=== PATIENT | male | born 1960 | race Caucasian/White ===

== ENCOUNTER 2020-05-29 19:09 | Emergency (ER) | payer OTHER ==
[~2020-05-29] VITALS: Ht 172.7 cm; Wt 95.5 kg
[2020-05-29 19:16] VITALS: Ht 172.7 cm; Wt 95.5 kg
[2020-05-29] MEDS ORDERED: GLUCOPHAGE1000 MG PO (19:19)
[2020-05-29] MEDS ORDERED: PIOGLITAZONE15 MG PO (19:20)
[2020-05-29] MEDS ORDERED: PAXIL CR37.5 MG PO (19:20)
[2020-05-29 19:55] LABS: BASOPHILS 0.2 % (0-2); EOSINOPHILS 0.3 % (0-7); HEMATOCRIT 38.6 % (42.0-54.0); HEMOGLOBIN 13.6 g/dL (13.5-17.5); IMMATURE GRANULOCYTES 0.2 % (0-5); LYMPHOCYTES 12.3 % (15-50); MCHC 35.2 g/dL (31.0-37.0); MCV 93.7 fL (80.0-100.0); MEAN PLATELET VOLUME 8.8 fL (7.4-10.4); MONOCYTES 8.1 % (2-11); NEUTROPHILS 78.9 % (40-80); PLATELET COUNT 285 10x3/uL (130-400); RBC 4.12 10x6/uL (4.20-6.10); RDW 12.1 % (11.5-14.5); WBC 8.7 10x3/uL (4.8-10.8)
[2020-05-29 20:07] LABS: CALCIUM 9.8 mg/dL (8.5-10.1); CARBON DIOXIDE 23.2 mmol/L (21.0-32.0); CREATININE - SERUM 1.1 mg/dL (0.6-1.3); POTASSIUM - SERUM 4.2 mmol/L (3.5-5.1)
[2020-05-29 20:21] LABS: ALBUMIN 4.4 g/dL (3.4-5.0); BILIRUBIN - TOTAL 0.54 mg/dL (0.2-1.3); PROTEIN - SERUM 7.7 g/dL (6.4-8.2)
[2020-05-29] MEDS ORDERED: ZOFRAN ODT4 MG/UDTAB PO (21:06)
[2020-05-29] MEDS ORDERED: FLOMAX0.4 MG PO (21:06)
[2020-05-29] MEDS ORDERED: DICLOFENAC SODI50 MG PO (21:06)
[2020-05-29] MEDS ORDERED: HYDROCODON-ACE1 EAC7 PO (21:06)
[2020-05-29] MEDS ORDERED: KEFLEX500 MG PO (21:09)
[2020-05-29 21:23] LABS: BACTERIA FEW HPF (NONE SEEN); BILIRUBIN NEGATIVE (NEGATIVE); EPITHELIAL CELLS 0-5 /hpf (0-5); KETONE LARGE mg/dL (NEGATIVE); NITRITE NEGATIVE (NEGATIVE); UROBILINOGEN NORMAL mg/dL (< 2); WHITE CELLS - URINE 0-5 HPF (0-1)
[2020-05-29 21:51] VITALS: BP 163/82
== END 2020-05-29 21:51 | disposition home or self-care (01) ==
LOC: D.ER 19:09
PROVIDERS: Emergency Medicine
DX: R10.30 Lower abdominal pain, unspecified (principal); N13.39 Other hydronephrosis; N20.2 Calculus of kidney with calculus of ureter; R94.4 Abnormal results of kidney function studies; E11.65 Type 2 diabetes mellitus with hyperglycemia; Z79.84 Long term (current) use of oral hypoglycemic drugs; I10 Essential (primary) hypertension